=== PATIENT | female | born 2005 | race Hispanic/Latino ===

== ENCOUNTER 2025-03-25 06:33 | Day surgery (SDC) | payer OTHER ==
[2025-03-25] VITALS (10 sets, daily range): BP systolic 92–137; BP diastolic 51–75; PULSE 85–100; RESP 12–20; TEMP 97.4–97.9
[~2025-03-25] VITALS: Ht 167.6 cm; Wt 158.8 kg
[~2025-03-25 06:33] MED LIST: MULT-1367 PO
[2025-03-25] MEDS: 0.9%NACL 1000ML 1,000 ML IV ONE (07:07)
[2025-03-25] MEDS ORDERED: proPOFol 10 MG/ML 20ML VIAL IV ONE (09:50)
--- NOTE | 2025-03-25 11:05 | NUR ---
Full and complete discharge instructions given to Patient and Family both verbally and in writing. Explained GI procedure precautions and follow up. All questions answered. PIV removed with catheter tip intact. Home with Family W/C to POV.
== END 2025-03-25 11:05 | disposition home or self-care (01) ==
LOC: DAH 06:33
PROVIDERS: ATTEND Surgery
DX: R12 Heartburn (principal); K29.50 Unspecified chronic gastritis without bleeding; K31.89 Other diseases of stomach and duodenum; K22.89 Other specified disease of esophagus; I10 Essential (primary) hypertension; E66.01 Morbid (severe) obesity due to excess calories; Z88.8 Allergy status to other drugs, medicaments and biological substances; Z68.54 Body mass index [BMI] pediatric, 95th percentile for age to less than 120% of the 95th percentile for age; Z90.49 Acquired absence of other specified parts of digestive tract; Z79.899 Other long term (current) drug therapy
CPT/HCPCS: 43239; 84703; 36415; J7030; J2704; A4620; A4215; A4223; A4222; A4221; A4663; A4606; J3490

== ENCOUNTER → 2025-07-21 | Outpatient (CLI) | payer OTHER ==
--- NOTE | 2025-07-22 13:14 | HMCIMG ---
DOUBLE CONTRAST UPPER GI SERIES: Gastroesophageal reflux without esophagitis. Patient has history of gastric sleeve surgery. Finding: The study was performed using provocative maneuvers After swallowing effervescent crystal and thick barium, there is no definite intrinsic or extrinsic lesion seen in the esophagus. 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 The rugal folds appear to be normal. The duodenal bulb, duodenal sweep, and upper jejunum appear to be normal. Fluoroscopy time: 1.4 minutes IMPRESSION: Status post gastric sleeve surgery otherwise NORMAL DOUBLE CONTRAST UPPER GI SERIES.
== END | disposition home or self-care (01) ==
LOC: RAH 10:39
PROVIDERS: ATTEND Surgery
DX: K21.9 Gastro-esophageal reflux disease without esophagitis (principal); Z98.84 Bariatric surgery status
CPT/HCPCS: 74240